=== PATIENT | male | born 1955 | race Caucasian/White ===

== ENCOUNTER 2024-06-15 10:22 | Inpatient (IN) | payer OTHER ==
[2024-06-15 10:33] VITALS: BMI 25.0
[2024-06-15 12:41] LABS: BASO % 0.4 % (0-2.0); EOS % 0.1 % (0-4.5); HEMATOCRIT 40.5 % (35.4-49); HEMOGLOBIN 13.5 GM/dL (11.7-16.9); LYMPH % 12.4 % (8-40); MCH 30.7 pg (25.7-33.7); MCHC 33.4 g/dl (32.0-35.9); MEAN PLT VOLUME 7.6 fl (7.5-11.1); MONO % 16.4 % (3.8-10.2); NEUT % 70.7 % (42.8-82.8); PLATELET COUNT 207 10^3/uL (134-434); RDW 13.9 % (11.9-15.9); WHITE BLOOD COUNT 14.6 K/mm3 (4.0-10.0)
[2024-06-15 13:00] LABS: CHLORIDE 105 mmol/L (98-107); POTASSIUM 4.7 mmol/L (3.5-5.1); SODIUM 138 mmol/L (136-145)
[2024-06-15 13:02] LABS: ALBUMIN 3.7 g/dl (3.4-5.0); ANION GAP 13 mmol/L (4-13); BLOOD UREA NITROGEN 77.4 mg/dL (7-18); CALCIUM 8.8 mg/dL (8.5-10.1); CO2 20 mmol/L (21-32); GLUCOSE,RANDOM 92 mg/dL (74-106)
[2024-06-15 13:05] LABS: SGOT/AST 34 U/L (15-37); SGPT/ALT 25 U/L (13-61)
[2024-06-15 13:07] LABS: TOT PROT 7.2 g/dl (6.4-8.2)
[2024-06-15 13:08] LABS: ALK PHOS 66 U/L (45-117)
[2024-06-15 13:10] LABS: CREATININE 10.6 mg/dL (0.55-1.3)
[2024-06-15 13:27] LABS: BILIRUBIN,TOTAL 0.8 mg/dL (0.2-1)
[2024-06-15] MEDS ORDERED: LIDOCAINE HCL 2% JELLY 6 ML TP ONE (13:48)
[2024-06-15] MEDS: LIDOCAINE HCL 2% JELLY 10 ML CARTRIDGE UR ONE (13:59)
[2024-06-15 16:56] LABS: PH,URINE 5.5 (5.0-8.0); URINE APPEARANCE Clear; URINE BILIRUBIN Negative (NEGATIVE); URINE COLOR Yellow; URINE GLUCOSE (UA) Negative (NEGATIVE); URINE KETONE Negative (NEGATIVE); URINE LEUK ESTERASE Trace (NEGATIVE); URINE NITRITE Negative (NEGATIVE); URINE PROTEIN Trace (NEGATIVE); URINE UROBILINOGEN 0.2 mg/dL (0.2-1.0)
[2024-06-15 17:09] LABS: EPI CELLS 4.5 /uL (0-25.1); HYALINE CASTS 0.54 /uL (0-3.1); URINE BACTERIA 3.7 /uL (0-1359); URINE WBC 93.8 /uL (0-25.8)
[2024-06-15] MEDS: SODIUM CHLORIDE 1,000 ML IV SCH ×2 (18:47→20:40)
[2024-06-15 21:12] VITALS: RESP 18
[2024-06-15] MEDS: SENNOSIDES 8.8 MG/5 ML SYRUP PO SCH (21:14)
[2024-06-15 21:51] LABS: POTASSIUM 3.9 mmol/L (3.5-5.1)
[2024-06-15 21:53] LABS: ALBUMIN 3.4 g/dl (3.4-5.0); CALCIUM 8.5 mg/dL (8.5-10.1)
[2024-06-15 21:57] LABS: CREATININE 3.2 mg/dL (0.55-1.3)
[2024-06-15 21:58] LABS: BILIRUBIN,TOTAL 0.7 mg/dL (0.2-1); TOT PROT 6.6 g/dl (6.4-8.2)
[2024-06-15] MEDS ORDERED: HEPARIN NA (PORCINE) 5,000 UNITS/ML 1ML VIAL SQ SCH (22:00)
[2024-06-15 22:01] LABS: BLOOD UREA NITROGEN 40.9 mg/dL (7-18)
[2024-06-16] MEDS ORDERED: SODIUM CHLORIDE 1,000 ML IV SCH (09:02)
[2024-06-16 09:14] LABS: HEMATOCRIT 37.3 % (35.4-49); HEMOGLOBIN 12.8 GM/dL (11.7-16.9); MCH 31.7 pg (25.7-33.7); MCHC 34.4 g/dl (32.0-35.9); MEAN CELL VOLUME 92.4 fl (80-96); MEAN PLT VOLUME 8.8 fl (7.5-11.1); PLATELET COUNT 197 10^3/uL (134-434); RBC 4.04 M/mm3 (4.00-5.60); RDW 13.5 % (11.9-15.9); WHITE BLOOD COUNT 9.8 K/mm3 (4.0-10.0)
[2024-06-16] MEDS: DOCUSATE SODIUM 100 MG CAPSULE (FP) PO SCH (09:20)
[2024-06-16 09:48] LABS: POTASSIUM 4.1 mmol/L (3.5-5.1)
[2024-06-16 10:03] LABS: CALCIUM 8.5 mg/dL (8.5-10.1)
[2024-06-16 10:04] LABS: ALBUMIN 3.2 g/dl (3.4-5.0); MAGNESIUM 2.5 mg/dL (1.8-2.4)
[2024-06-16 10:06] LABS: CREATININE 1.1 mg/dL (0.55-1.3)
[2024-06-16 10:08] LABS: TOT PROT 6.5 g/dl (6.4-8.2)
[2024-06-16 10:10] LABS: PHOSPHOROUS 2.5 mg/dL (2.5-4.9)
[2024-06-16 10:14] LABS: BILIRUBIN,TOTAL 0.8 mg/dL (0.2-1)
[2024-06-16] MEDS: SODIUM CHLORIDE 1,000 ML IV SCH (20:22)
[2024-06-17 08:32] LABS: HEMATOCRIT 38.6 % (35.4-49); MCHC 33.7 g/dl (32.0-35.9); MEAN CELL VOLUME 92.2 fl (80-96); MEAN PLT VOLUME 8.7 fl (7.5-11.1); PLATELET COUNT 208 10^3/uL (134-434); RBC 4.19 M/mm3 (4.00-5.60); RDW 13.3 % (11.9-15.9); WHITE BLOOD COUNT 8.7 K/mm3 (4.0-10.0)
[2024-06-17 09:23] LABS: BLOOD UREA NITROGEN 15.9 mg/dL (7-18); CALCIUM 8.4 mg/dL (8.5-10.1)
[2024-06-17 09:24] LABS: MAGNESIUM 2.4 mg/dL (1.8-2.4)
[2024-06-17 09:26] LABS: CREATININE 0.8 mg/dL (0.55-1.3)
[2024-06-17 09:27] LABS: PHOSPHOROUS 2.5 mg/dL (2.5-4.9)
[2024-06-17] MEDS: SODIUM CHLORIDE 1,000 ML IV SCH (12:11)
[2024-06-17 22:10] LABS: ANTIGLOMERULAR BASEMENT MEN.AB <0.2 units (0.0-0.9)
[2024-06-18 10:41] LABS: HEMATOCRIT 40.2 % (35.4-49); HEMOGLOBIN 14.1 GM/dL (11.7-16.9); MCH 31.8 pg (25.7-33.7); MEAN CELL VOLUME 90.8 fl (80-96); MEAN PLT VOLUME 8.2 fl (7.5-11.1); PLATELET COUNT 262 10^3/uL (134-434); RBC 4.43 M/mm3 (4.00-5.60); RDW 13.4 % (11.9-15.9); WHITE BLOOD COUNT 8.6 K/mm3 (4.0-10.0)
[2024-06-18 11:00] LABS: POTASSIUM 3.7 mmol/L (3.5-5.1)
[2024-06-18 11:02] LABS: BLOOD UREA NITROGEN 13.6 mg/dL (7-18); CALCIUM 8.8 mg/dL (8.5-10.1); MAGNESIUM 2.3 mg/dL (1.8-2.4)
[2024-06-18 11:05] LABS: CREATININE 0.8 mg/dL (0.55-1.3)
[2024-06-18 11:06] LABS: PHOSPHOROUS 2.3 mg/dL (2.5-4.9)
[2024-06-18] MEDS: NAPH,MB-DB/K PH,MBDB POWDER PACKET PO ONE (11:39)
[2024-06-18 15:08] LABS: C-ANCA <1:20 titer (Neg:<1:20)
[2024-06-18 16:00] VITALS: BP 127/65; PULSE 62; TEMP 98.2
== END 2024-06-18 17:00 | disposition home or self-care (01) | DRG 684 ==
LOC: JER 10:22 → JERBED 17:05 → J6S 19:31
PROVIDERS: ADMIT Internal Medicine; ATTEND Internal Medicine
DX: N17.9 Acute kidney failure, unspecified (principal); I10 Essential (primary) hypertension; K59.00 Constipation, unspecified; R33.9 Retention of urine, unspecified; J45.909 Unspecified asthma, uncomplicated; R31.9 Hematuria, unspecified; E27.9 Disorder of adrenal gland, unspecified
CPT/HCPCS: 36415; 74176-TC; 76775-TC; 76856-TC; 80048; 80053; 80061; 81003; 83516; 83520; 83735; 84100; 84155; 84165; 85025; 85027; 86038; 86160; 86225; 86256; 87086; 93005; 93010; 99285-25

== ENCOUNTER 2024-09-07 18:40 | Inpatient (IN) | payer OTHER ==
[2024-09-07 19:29] VITALS: BMI 23.1
[2024-09-07] MEDS ORDERED: morphine SULFATE 4 MG/ML VIAL ONE (19:33)
[2024-09-07] MEDS: morphine CARPU-JECT 4 MG/1 ML DISP.SYRIN SQ ONE (19:44)
[2024-09-07 20:11] LABS: BASO % 0.4 % (0-2.0); EOS % 0.5 % (0-4.5); HEMOGLOBIN 12.3 GM/dL (11.7-16.9); MCH 30.7 pg (25.7-33.7); MCHC 33.2 g/dl (32.0-35.9); MEAN CELL VOLUME 92.7 fl (80-96); NEUT % 81.1 % (42.8-82.8); PLATELET COUNT 337 10^3/uL (134-434); RBC 3.99 M/mm3 (4.00-5.60); RDW 13.5 % (11.9-15.9); WHITE BLOOD COUNT 13.9 K/mm3 (4.0-10.0)
[2024-09-07 20:20] LABS: INR 1.22 (0.83-1.09); PROTHROMBIN TIME (PATIENT) 13.3 SEC (9.7-13.0)
[2024-09-07 20:21] LABS: EPI CELLS 5 /uL (0-25.1); HYALINE CASTS 0 /uL (0-3.1); URINE APPEARANCE CLEAR; URINE BACTERIA 5 /uL (0-1359); URINE BILIRUBIN NEGATIVE (NEGATIVE); URINE COLOR YELLOW; URINE GLUCOSE (UA) NEGATIVE (NEGATIVE); URINE KETONE NEGATIVE (NEGATIVE); URINE LEUK ESTERASE 1+ (NEGATIVE); URINE NITRITE NEGATIVE (NEGATIVE); URINE PROTEIN TRACE (NEGATIVE); URINE RBC 174 /uL (0-23.9); URINE UROBILINOGEN 0.2 mg/dL (0.2-1.0); URINE WBC 288 /uL (0-25.8)
[2024-09-07 20:22] LABS: ACTIVATED PTT 30.3 SECONDS (25.2-36.5)
[2024-09-07 20:25] LABS: CHLORIDE 105 mmol/L (98-107); POTASSIUM 4.7 mmol/L (3.5-5.1); SODIUM 138 mmol/L (136-145)
[2024-09-07] MEDS ORDERED: KETOROLAC TROMETHAMINE 15 MG/ML VIAL ONE (20:26)
[2024-09-07 20:27] LABS: ALBUMIN 3.8 g/dl (3.4-5.0); ANION GAP 16 mmol/L (4-13); CALCIUM 8.6 mg/dL (8.5-10.1); CO2 16 mmol/L (21-32)
[2024-09-07 20:28] LABS: GLUCOSE,RANDOM 113 mg/dL (74-106)
[2024-09-07 20:30] LABS: SGOT/AST 16 U/L (15-37); SGPT/ALT 24 U/L (13-61)
[2024-09-07 20:32] LABS: BILIRUBIN,TOTAL 0.4 mg/dL (0.2-1); TOT PROT 7.8 g/dl (6.4-8.2)
[2024-09-07 20:33] LABS: ALK PHOS 84 U/L (45-117)
[2024-09-07 20:35] LABS: BLOOD UREA NITROGEN 110.9 mg/dL (7-18); CREATININE 12.2 mg/dL (0.55-1.3)
[2024-09-07] MEDS: KETOROLAC TROMETHAMINE 15 MG/ML VIAL IVPUSH ONE (20:37)
[2024-09-07] MEDS: LACTATED RINGERS SOLUTION 1000 ML INFUS.BAG IV ONE (21:03)
[2024-09-07 21:21] LABS: HIV INTERPRETATION NEGATIVE (NEGATIVE)
[2024-09-07] MEDS ORDERED: CEFTRIAXONE 1 G/50 ML PREMIX 50 ML IVPB ONE (21:51)
[2024-09-07] MEDS: CEFTRIAXONE 1,000 MG in DEXTROSE 5%-WATER - 50 ML IVPB ONE (22:04)
[2024-09-07 23:12] LABS: VENOUS BASE EXCESS -7.6 mmol/L (-2-2); VENOUS O2 SATURATION 95.5 % (70-80); VENOUS PCO2 29.5 mmHg (38-52); VENOUS PH 7.365 (7.310-7.410)
[2024-09-08] MEDS ORDERED: MORPHINE SULFATE 2 MG/ML SYRINGE ONE (00:31)
[2024-09-08] MEDS ORDERED: ACETAMINOPHEN 325 MG TABLET (FP) PO PRN (00:44)
[2024-09-08] MEDS: morphine CARPU-JECT 4 MG/1 ML DISP.SYRIN IVPUSH ONE (00:44)
[2024-09-08 04:06] LABS: ARTERIAL BLD GAS O2 SATURATION 96.4 % (95-98); ARTERIAL BLOOD GAS BASE EXCESS -5.4 mmol/L (-2-2); ARTERIAL BLOOD GAS PO2 83.7 mmHg (80-100); ARTERIAL BLOOD GAS pH 7.397 (7.350-7.450)
[2024-09-08 04:07] LABS: ALLENS TEST POSITIVE
[2024-09-08 06:08] LABS: BASO % 1.1 % (0-2.0); EOS % 1.7 % (0-4.5); HEMOGLOBIN 11.6 GM/dL (11.7-16.9); LYMPH % 19.5 % (8-40); MCH 30.5 pg (25.7-33.7); MCHC 33.2 g/dl (32.0-35.9); MONO % 14.9 % (3.8-10.2); NEUT % 62.8 % (42.8-82.8); PLATELET COUNT 296 10^3/uL (134-434); RDW 13.4 % (11.9-15.9); WHITE BLOOD COUNT 9.1 K/mm3 (4.0-10.0)
[2024-09-08 06:26] LABS: POTASSIUM 4.2 mmol/L (3.5-5.1)
[2024-09-08 06:30] LABS: ALBUMIN 3.3 g/dl (3.4-5.0); CALCIUM 8.5 mg/dL (8.5-10.1); MAGNESIUM 2.7 mg/dL (1.8-2.4)
[2024-09-08 06:34] LABS: CREATININE 6.9 mg/dL (0.55-1.3); PHOSPHOROUS 4.5 mg/dL (2.5-4.9)
[2024-09-08 06:35] LABS: BILIRUBIN,TOTAL 0.4 mg/dL (0.2-1); TOT PROT 6.8 g/dl (6.4-8.2)
[2024-09-08 06:36] LABS: BLOOD UREA NITROGEN 83.8 mg/dL (7-18)
[2024-09-08] MEDS: LEVOTHYROXINE NA 25 MCG TABLET (FP) PO SCH (09:04)
[2024-09-08] MEDS ORDERED: LEVOTHYROXINE NA 25 MCG TABLET (FP) ONE (09:07)
[2024-09-08] MEDS ORDERED: CEFTRIAXONE 1 G/50 ML PREMIX 50 ML IVPB SCH (15:48)
[2024-09-08] MEDS: CEFTRIAXONE 1 G/50 ML PREMIX 50 ML IVPB SCH (16:34)
[2024-09-08] MEDS: CEFTRIAXONE 1 GM in DEXTROSE 5%-WATER - 50 ML IVPB SCH (16:35)
[2024-09-08] MEDS ORDERED: SODIUM CHLORIDE 1,000 ML IV SCH (18:45)
[2024-09-08] MEDS: amLODIPine BESYLATE 2.5 MG TABLET (FP) PO SCH (20:45)
[2024-09-08] MEDS: SODIUM CHLORIDE 0.45% 1,000 ML IV SCH (21:29)
[2024-09-08] MEDS: HEPARIN NA (PORCINE) 5,000 UNITS/ML 1ML VIAL SQ SCH (21:31)
[2024-09-09] MEDS: LEVOTHYROXINE NA 25 MCG TABLET (FP) PO SCH (06:27)
[2024-09-09 10:16] LABS: EOS % 2.2 % (0-4.5); HEMATOCRIT 37.1 % (35.4-49); HEMOGLOBIN 12.4 GM/dL (11.7-16.9); LYMPH % 18.2 % (8-40); MCH 30.7 pg (25.7-33.7); MCHC 33.5 g/dl (32.0-35.9); MEAN CELL VOLUME 91.8 fl (80-96); MEAN PLT VOLUME 8.5 fl (7.5-11.1); MONO % 12.8 % (3.8-10.2); NEUT % 65.8 % (42.8-82.8); PLATELET COUNT 338 10^3/uL (134-434); RBC 4.04 M/mm3 (4.00-5.60); RDW 13.2 % (11.9-15.9); WHITE BLOOD COUNT 9.8 K/mm3 (4.0-10.0)
[2024-09-09 11:52] LABS: POTASSIUM 3.9 mmol/L (3.5-5.1)
[2024-09-09 11:54] LABS: CALCIUM 8.8 mg/dL (8.5-10.1)
[2024-09-09 11:55] LABS: ALBUMIN 3.4 g/dl (3.4-5.0); MAGNESIUM 2.2 mg/dL (1.8-2.4)
[2024-09-09 11:58] LABS: CREATININE 0.8 mg/dL (0.55-1.3)
[2024-09-09 11:59] LABS: BILIRUBIN,TOTAL 0.5 mg/dL (0.2-1)
[2024-09-09 12:04] LABS: BLOOD UREA NITROGEN 15.1 mg/dL (7-18)
[2024-09-09] MEDS ORDERED: CEFTRIAXONE 1 GM in DEXTROSE 5%-WATER - 50 ML IVPB SCH (20:00)
[2024-09-09] MEDS: SODIUM CHLORIDE 0.45% 1,000 ML IV SCH ×2 (21:45→22:08)
[2024-09-09] MEDS: CEFUROXIME AXETIL 500 MG TABLET PO SCH (22:08)
[2024-09-10 09:05] LABS: BASO % 1.3 % (0-2.0); EOS % 2.9 % (0-4.5); HEMATOCRIT 41.8 % (35.4-49); LYMPH % 18.4 % (8-40); MCH 30.7 pg (25.7-33.7); MCHC 33.6 g/dl (32.0-35.9); MEAN CELL VOLUME 91.4 fl (80-96); MEAN PLT VOLUME 8.3 fl (7.5-11.1); MONO % 13.5 % (3.8-10.2); NEUT % 63.9 % (42.8-82.8); PLATELET COUNT 384 10^3/uL (134-434); RBC 4.57 M/mm3 (4.00-5.60); RDW 13.2 % (11.9-15.9); WHITE BLOOD COUNT 10.6 K/mm3 (4.0-10.0)
[2024-09-10 09:22] LABS: POTASSIUM 4.2 mmol/L (3.5-5.1)
[2024-09-10 09:31] LABS: CALCIUM 9.1 mg/dL (8.5-10.1)
[2024-09-10 09:32] LABS: ALBUMIN 3.5 g/dl (3.4-5.0); MAGNESIUM 2.1 mg/dL (1.8-2.4)
[2024-09-10 09:35] LABS: CREATININE 0.8 mg/dL (0.55-1.3)
[2024-09-10 09:36] LABS: BILIRUBIN,TOTAL 0.6 mg/dL (0.2-1); TOT PROT 7.4 g/dl (6.4-8.2)
[2024-09-10 10:43] VITALS: RESP 18; TEMP 97.7
[2024-09-10 14:34] VITALS: BP 113/86; PULSE 77
== END 2024-09-10 14:50 | disposition home or self-care (01) | DRG 699 ==
LOC: JER 18:40 → JERBED 20:39 → J7W 09-08 10:46
PROVIDERS: ADMIT Student in an Organized Health Care Education/Training Program; ATTEND Nurse Practitioner Family
DX: N99.89 Other postprocedural complications and disorders of genitourinary system (principal); E87.20 Acidosis, unspecified; N17.9 Acute kidney failure, unspecified; N12 Tubulo-interstitial nephritis, not specified as acute or chronic; N32.0 Bladder-neck obstruction; N40.1 Benign prostatic hyperplasia with lower urinary tract symptoms; R33.8 Other retention of urine; N30.90 Cystitis, unspecified without hematuria; N13.9 Obstructive and reflux uropathy, unspecified; K44.9 Diaphragmatic hernia without obstruction or gangrene; E03.9 Hypothyroidism, unspecified; D35.01 Benign neoplasm of right adrenal gland; R59.1 Generalized enlarged lymph nodes; I10 Essential (primary) hypertension; K76.89 Other specified diseases of liver; K57.90 Diverticulosis of intestine, part unspecified, without perforation or abscess without bleeding
CPT/HCPCS: 36415; 36600; 71045-TC-FY; 74176-TC; 80053; 81003; 82570; 82803; 83036; 83690; 83735; 84100; 84300; 85025; 85610; 85730; 86803; 87086; 87389; 93005; 93010; 99285-25

== ENCOUNTER 2024-09-24 09:49 | Emergency (ER) | payer OTHER ==
[2024-09-24 10:05] VITALS: RESP 16; TEMP 99; BMI 25.4
[2024-09-24] MEDS ORDERED: LIDOCAINE HCL 2% JELLY 6 ML TP ONE (10:53)
[2024-09-24 11:36] LABS: BASO % 0.8 % (0-2.0); EOS % 0.6 % (0-4.5); HEMATOCRIT 41.8 % (35.4-49); LYMPH % 18.4 % (8-40); MCH 30.4 pg (25.7-33.7); MCHC 33.6 g/dl (32.0-35.9); MEAN CELL VOLUME 90.7 fl (80-96); MEAN PLT VOLUME 7.6 fl (7.5-11.1); MONO % 12.2 % (3.8-10.2); PLATELET COUNT 278 10^3/uL (134-434); RBC 4.61 M/mm3 (4.00-5.60); RDW 13.1 % (11.9-15.9); WHITE BLOOD COUNT 6.4 K/mm3 (4.0-10.0)
[2024-09-24 11:52] LABS: EPI CELLS 1 /uL (0-25.1); HYALINE CASTS 0 /uL (0-3.1); PH,URINE 5.5 (5.0-8.0); URINE APPEARANCE CLEAR; URINE BACTERIA 0 /uL (0-1359); URINE BILIRUBIN NEGATIVE (NEGATIVE); URINE COLOR YELLOW; URINE GLUCOSE (UA) NEGATIVE (NEGATIVE); URINE KETONE NEGATIVE (NEGATIVE); URINE LEUK ESTERASE NEGATIVE (NEGATIVE); URINE NITRITE NEGATIVE (NEGATIVE); URINE PROTEIN 1+ (NEGATIVE); URINE RBC 0 /uL (0-23.9); URINE WBC 6 /uL (0-25.8)
[2024-09-24 11:57] LABS: POTASSIUM 3.9 mmol/L (3.5-5.1)
[2024-09-24 11:59] LABS: CALCIUM 8.4 mg/dL (8.5-10.1)
[2024-09-24 12:00] LABS: ALBUMIN 3.9 g/dl (3.4-5.0)
[2024-09-24 12:04] LABS: BILIRUBIN,TOTAL 0.5 mg/dL (0.2-1)
[2024-09-24 12:05] LABS: TOT PROT 7.4 g/dl (6.4-8.2)
[2024-09-24 13:26] VITALS: BP 131/65; PULSE 66
== END 2024-09-24 15:07 | disposition home or self-care (01) ==
LOC: JER 09:49
DX: R33.9 Retention of urine, unspecified (principal); R10.30 Lower abdominal pain, unspecified
CPT/HCPCS: 36415; 76857; 80053; 81003; 85025; 87086; 99284-25

== ENCOUNTER 2024-10-08 05:51 | Emergency (ER) | payer OTHER ==
[2024-10-08] MEDS ORDERED: LIDOCAINE HCL 2% JELLY 6 ML TP ONE (06:06)
[2024-10-08 06:22] VITALS: BP 150/74; PULSE 65; RESP 20; TEMP 97.8; BMI 25.4
[2024-10-08 06:51] LABS: EPI CELLS 0 /uL (0-25.1); HYALINE CASTS 3 /uL (0-3.1); PH,URINE 5.5 (5.0-8.0); URINE APPEARANCE CLEAR; URINE BACTERIA 71 /uL (0-1359); URINE BILIRUBIN NEGATIVE (NEGATIVE); URINE COLOR YELLOW; URINE GLUCOSE (UA) NEGATIVE (NEGATIVE); URINE KETONE NEGATIVE (NEGATIVE); URINE LEUK ESTERASE 2+ (NEGATIVE); URINE NITRITE NEGATIVE (NEGATIVE); URINE PROTEIN TRACE (NEGATIVE); URINE RBC 16 /uL (0-23.9); URINE UROBILINOGEN 0.2 mg/dL (0.2-1.0); URINE WBC 628 /uL (0-25.8)
[2024-10-08] MEDS ORDERED: SULFAMETHOXAZOLE/TRIMETHOPRIM 800MG/160MG D.S. TABLET ONE (06:58)
[2024-10-08] MEDS: SULFAMETHOXAZOLE/TRIMETHOPRIM 800MG/160MG D.S. TABLET PO ONE (07:06)
== END 2024-10-08 10:57 | disposition home or self-care (01) ==
LOC: JER 05:51
DX: N39.0 Urinary tract infection, site not specified (principal); R33.9 Retention of urine, unspecified
CPT/HCPCS: 81003; 87086; 99283-25

== ENCOUNTER 2024-11-20 01:35 | Emergency (ER) | payer OTHER ==
[2024-11-20 01:45] VITALS: BP 150/86; PULSE 82; RESP 17; TEMP 97.8; BMI 25.4
== END 2024-11-20 02:59 | disposition home or self-care (01) ==
LOC: JER 01:35
DX: T83.031A Leakage of indwelling urethral catheter, initial encounter (principal)
CPT/HCPCS: 99283-25

== ENCOUNTER 2024-12-13 13:09 | Emergency (ER) | payer OTHER ==
[2024-12-13 13:17] VITALS: BMI 25.2
[2024-12-13 18:08] LABS: URINE APPEARANCE CLOUDY; URINE BILIRUBIN NEGATIVE (NEGATIVE); URINE COLOR RED; URINE GLUCOSE (UA) NEGATIVE (NEGATIVE); URINE KETONE NEGATIVE (NEGATIVE); URINE LEUK ESTERASE 3+ (NEGATIVE); URINE NITRITE POSITIVE (NEGATIVE); URINE PROTEIN 100 (NEGATIVE)
[2024-12-13 18:56] LABS: EPI CELLS 6 /uL (0-25.1); HYALINE CASTS 7 /uL (0-3.1); URINE BACTERIA >9,000 /uL (0-1359); URINE RBC 5761 /uL (0-23.9); URINE WBC 455 /uL (0-25.8)
[2024-12-13 19:39] VITALS: BP 140/87; PULSE 62; RESP 16; TEMP 98
== END 2024-12-13 19:47 | disposition home or self-care (01) ==
LOC: JER 13:09
PROC: 0T2BX0Z Change Drainage Device in Bladder, External Approach (ICD-10-PCS; principal; 2024-12-13)
DX: N30.01 Acute cystitis with hematuria (principal)
CPT/HCPCS: 51702; 81003; 87086; 99283-25

== ENCOUNTER 2025-02-04 02:31 | Emergency (ER) | payer OTHER ==
[2025-02-04 02:39] VITALS: RESP 20; TEMP 98.8; BMI 24.8
[2025-02-04] MEDS ORDERED: ACETAMINOPHEN INJECTION 100 ML ONE (03:08)
[2025-02-04] MEDS ORDERED: LIDOCAINE HCL 2% JELLY 6 ML TP ONE (03:09)
[2025-02-04 03:35] LABS: ABSOLUTE IMMATURE GRANULOCYTES 0.07 x10^3/uL (0.0-0.031); BASOPHILS # 0.13 x10^3/uL (0.01-0.08); EOSINOPHIL % 7.1 % (0.8-7.0); EOSINOPHILS # 0.72 x10^3/uL (0.04-0.54); MCHC 33.1 g/dl (32.3-36.5); MEAN CELL VOLUME 91.3 fl (79.0-92.2); MEAN PLT VOLUME 8.8 fl (9.4-12.4); MONOCYTE # 1.21 x10^3/uL (0.30-0.82); MONOCYTE % 11.9 % (5.3-12.2); RDW 12.3 % (12.2-16.4)
[2025-02-04] MEDS: ACETAMINOPHEN 1000 MG/100 ML BAG IVPB ONE (03:55)
[2025-02-04 03:56] VITALS: BP 125/74; PULSE 77
[2025-02-04 04:16] LABS: CO2 25.0 mmol/L (21-32); GLUCOSE,RANDOM 97.0 mg/dL (74-106)
[2025-02-04 04:19] LABS: CREATININE 1.0 mg/dL (0.55-1.3); SGOT/AST 19.0 U/L (15-37); SGPT/ALT 20.0 U/L (13-61)
[2025-02-04 04:21] LABS: TOT PROT 7.9 g/dl (6.4-8.2)
[2025-02-04 04:22] LABS: ALK PHOS 107.0 U/L (45-117)
[2025-02-04 04:53] LABS: EPI CELLS 8 /uL (0-25.1); HYALINE CASTS 1 /uL (0-3.1); URINE APPEARANCE CLEAR; URINE BACTERIA 3 /uL (0-1359); URINE BILIRUBIN NEGATIVE (NEGATIVE); URINE COLOR YELLOW; URINE GLUCOSE (UA) NEGATIVE (NEGATIVE); URINE KETONE NEGATIVE (NEGATIVE); URINE LEUK ESTERASE 1+ (NEGATIVE); URINE NITRITE NEGATIVE (NEGATIVE); URINE PROTEIN 1+ (NEGATIVE); URINE RBC 383 /uL (0-23.9); URINE UROBILINOGEN 1.0 mg/dL (0.2-1.0); URINE WBC 96 /uL (0-25.8)
[2025-02-04 05:40] LABS: HIV INTERPRETATION NEGATIVE (NEGATIVE)
[2025-02-04 05:41] LABS: HCV DIAGNOSTIC IN-HOUSE W/RFLX NON-REACTIVE (NONREACTIVE)
[2025-02-04] MEDS ORDERED: CEFTRIAXONE 1 GM/50 ML BAG ONE (05:48)
[2025-02-04] MEDS: CEFTRIAXONE 1,000 MG in DEXTROSE 5%-WATER - 50 ML IVPB ONE (05:59)
== END 2025-02-04 07:12 | disposition home or self-care (01) ==
LOC: JER 02:31
PROC: 0T9B70Z Drainage of Bladder with Drainage Device, Via Natural or Artificial Opening (ICD-10-PCS; principal; 2025-02-04)
PROC: 3E03329 Introduction of Other Anti-infective into Peripheral Vein, Percutaneous Approach (ICD-10-PCS; 2025-02-04)
PROC: 3E033NZ Introduction of Analgesics, Hypnotics, Sedatives into Peripheral Vein, Percutaneous Approach (ICD-10-PCS; 2025-02-04)
DX: R33.9 Retention of urine, unspecified (principal); N48.89 Other specified disorders of penis; R10.9 Unspecified abdominal pain
CPT/HCPCS: 36415; 80053; 81003; 85025; 86803; 87086; 87389; 99285-25

== ENCOUNTER 2025-03-01 08:48 | Emergency (ER) | payer OTHER ==
[2025-03-01 08:55] VITALS: BP 132/69; PULSE 73; RESP 16; TEMP 97.7; BMI 24.5
[2025-03-01 10:41] LABS: ABSOLUTE IMMATURE GRANULOCYTES 0.08 x10^3/uL (0.0-0.031); BASOPHILS # 0.10 x10^3/uL (0.01-0.08); EOSINOPHIL % 5.0 % (0.8-7.0); EOSINOPHILS # 0.36 x10^3/uL (0.04-0.54); MCHC 33.1 g/dl (32.3-36.5); MEAN CELL VOLUME 91.2 fl (79.0-92.2); MEAN PLT VOLUME 8.8 fl (9.4-12.4); MONOCYTE # 1.06 x10^3/uL (0.30-0.82); MONOCYTE % 14.8 % (5.3-12.2); RDW 12.6 % (12.2-16.4)
[2025-03-01 11:03] LABS: GLUCOSE,RANDOM 104.0 mg/dL (74-106)
[2025-03-01 11:04] LABS: CO2 22.0 mmol/L (21-32); TOT PROT 6.9 g/dl (6.4-8.2)
[2025-03-01 11:06] LABS: ALK PHOS 90.0 U/L (40-150)
[2025-03-01 11:09] LABS: CREATININE 0.77 mg/dL (0.55-1.3); SGOT/AST 21.0 U/L (5-34); SGPT/ALT 12.0 U/L (0-55)
[2025-03-01 11:24] LABS: EPI CELLS 20 /uL (0-25.1); HYALINE CASTS 8 /uL (0-3.1); URINE APPEARANCE TURBID; URINE BACTERIA 5100 /uL (0-1359); URINE BILIRUBIN NEGATIVE (NEGATIVE); URINE COLOR RED; URINE GLUCOSE (UA) NEGATIVE (NEGATIVE); URINE KETONE NEGATIVE (NEGATIVE); URINE LEUK ESTERASE 3+ (NEGATIVE); URINE NITRITE POSITIVE (NEGATIVE); URINE PROTEIN 2+ (NEGATIVE); URINE RBC 1480 /uL (0-23.9); URINE UROBILINOGEN 0.2 mg/dL (0.2-1.0); URINE WBC 9955 /uL (0-25.8)
[2025-03-01] MEDS ORDERED: CEFTRIAXONE 1 GM/50 ML BAG ONE (12:08)
== END 2025-03-01 14:09 | disposition home or self-care (01) ==
LOC: JER 08:48
PROC: 0T9B70Z Drainage of Bladder with Drainage Device, Via Natural or Artificial Opening (ICD-10-PCS; principal; 2025-03-01)
PROC: 3E03329 Introduction of Other Anti-infective into Peripheral Vein, Percutaneous Approach (ICD-10-PCS; 2025-03-01)
DX: N39.0 Urinary tract infection, site not specified (principal); R31.9 Hematuria, unspecified; R30.0 Dysuria; R10.30 Lower abdominal pain, unspecified; R39.11 Hesitancy of micturition; T83.091A Other mechanical complication of indwelling urethral catheter, initial encounter
CPT/HCPCS: 36415; 51702; 80053; 81003; 83735; 84100; 85025; 86850; 86900; 86901; 87086; 96374; 99284-25